=== PATIENT | female | born 1970 | race Asian ===

== ENCOUNTER 2020-09-11 18:13 | Emergency (ER) | payer BC ==
[~2020-09-11] VITALS: Ht 160 cm; Wt 59.0 kg
[2020-09-11 18:27] VITALS: BP_SYST 106
[2020-09-11] MEDS ORDERED: ACETAMINOPHEN 325 MG TABLET PO ONE (18:30)
[2020-09-11] MEDS ORDERED: IBUP-1969 PO (18:41)
[2020-09-11] MEDS ORDERED: ACET325T53 PO (18:41)
[2020-09-11 19:00] VITALS: BP_SYST 106
== END 2020-09-11 18:55 | disposition home or self-care (01) ==
LOC: SED 18:13
DX: M79.671 Pain in right foot (principal); W01.0XXA Fall on same level from slipping, tripping and stumbling without subsequent striking against object, initial encounter; Y93.89 Activity, other specified; Y92.89 Other specified places as the place of occurrence of the external cause; Y99.8 Other external cause status
CPT/HCPCS: 99284